=== PATIENT | male | born 1955 | race Caucasian/White ===

== ENCOUNTER → 2023-07-31 12:11 | Outpatient (REF) | payer OTHER, SELFPAY | LOC: HWRAD 12:11 | PROVIDERS: ATTENDING PHYSICIAN Family Medicine | DX: M79.642 Pain in left hand (principal) | CPT/HCPCS: 73130 ==

== ENCOUNTER 2024-08-08 06:25 | Day surgery (SDC) | payer OTHER, SELFPAY | END 2024-08-08 12:21 | disposition home or self-care (01) | LOC: GI 06:25 | PROVIDERS: ATTENDING PHYSICIAN Internal Medicine | DX: Z12.11 Encounter for screening for malignant neoplasm of colon (principal); K57.30 Diverticulosis of large intestine without perforation or abscess without bleeding; K64.5 Perianal venous thrombosis; Z98.890 Other specified postprocedural states; Z86.0101 Personal history of adenomatous and serrated colon polyps; D12.4 Benign neoplasm of descending colon; D12.0 Benign neoplasm of cecum | CPT/HCPCS: 45385; 45381; 88305 ==